=== PATIENT | male | born 1980 | race Caucasian/White ===

== ENCOUNTER 2021-11-04 16:59 | Emergency (ER) | payer OTHER ==
[~2021-11-04] VITALS: Ht 170.2 cm; Wt 80.0 kg
[2021-11-04] MEDS ORDERED: OMEP10 PO (17:15)
[2021-11-04 18:41] LABS: INR 1.1 (0.9-1.1); PROTHROMBIN TIME 12.1 SEC (9.4-11.6)
[2021-11-04 18:42] LABS: BASOPHILS % (AUTO) 0.2 % (0.0-2.0); EOSINOPHILS % (AUTO) 0.5 % (1.0-6.0); HEMATOCRIT 45.6 % (41-53); HEMOGLOBIN 15.6 g/dL (13.5-17.5); LYMPHOCYTES # (AUTO) 0.7 K/uL (1.0-4.8); LYMPHOCYTES % (AUTO) 10.2 % (22.0-44.0); MEAN CORPUSCULAR HEMOGLOBIN 29.4 pg (26.0-34.0); MEAN CORPUSCULAR HGB CONC 34.2 G/dL (31.0-37.0); MEAN CORPUSCULAR VOLUME 86 fL (80-100); MONOCYTES # (AUTO) 0.5 K/uL (0.1-1.0); MONOCYTES % (AUTO) 7.9 % (2.0-9.0); NEUTROPHILS # (AUTO) 5.3 K/uL (1.8-7.7); NEUTROPHILS % (AUTO) 81.2 % (40.0-70.0); RED BLOOD CELL COUNT(AUTO) 5.31 MIL/uL (4.50-5.90); RED CELL DISTRIBUTION WIDTH 13.5 % (11.5-14.5)
[2021-11-04 19:01] LABS: ALANINE AMINOTRANSFERASE 42 U/L (12-78); ALBUMIN 3.8 g/dL (3.4-5.0); ALKALINE PHOSPHATASE 83 U/L (46-116); ANION GAP 12 mmol/L (8-16); ASPARTATE AMINOTRANSFERASE 59 U/L (15-37); BILIRUBIN,TOTAL 1.3 mg/dL (0.1-1.0); CARBON DIOXIDE 24 mmol/L (22-29); CHLORIDE 100 mmol/L (98-107); GLOMERULAR FILTR. RATE CALC > 60 mL/min (>60); GLUCOSE,RANDOM 88 mg/dL (70-110); POTASSIUM 3.7 mmol/L (3.5-5.1); SODIUM SERUM 136 mmol/L (136-145); TOTAL PROTEIN, SERUM 8.7 g/dL (6.4-8.2); UREA NITROGEN, BLOOD 20 mg/dL (7-18)
[2021-11-04 19:13] LABS: PLATELET COUNT (AUTO) 69 K/uL (150-450)
[2021-11-04 19:53] VITALS: BP 145/84
[2021-11-07] MEDS ORDERED: SERT-439 PO (12:05)
[2021-11-07] MEDS ORDERED: QUET25TA36 PO (12:05)
== END 2021-11-04 20:36 | disposition home or self-care (01) ==
LOC: EMS 16:59
DX: F15.10 Other stimulant abuse, uncomplicated (principal); F41.9 Anxiety disorder, unspecified; F17.210 Nicotine dependence, cigarettes, uncomplicated; F14.90 Cocaine use, unspecified, uncomplicated
CPT/HCPCS: 71045; 80053; 84484; 85025; 85610; 85730; 93005; 99285; 36415-L1; 36415-TC

== ENCOUNTER 2021-11-05 00:02 | Emergency (ER) | payer OTHER ==
[~2021-11-05] VITALS: Ht 175.3 cm; Wt 85.9 kg
[~2021-11-05 00:02] MED LIST: OMEP10 PO
[2021-11-05 00:08] VITALS: BP 136/86
[2021-11-05] MEDS ORDERED: ACETAMINOPHEN 500 MG TABLET PO ONE (02:15)
[2021-11-07] MEDS ORDERED: SERT-439 PO (12:05)
[2021-11-07] MEDS ORDERED: QUET25TA36 PO (12:05)
== END 2021-11-05 02:38 | disposition home or self-care (01) ==
LOC: EMS 00:02
DX: F15.10 Other stimulant abuse, uncomplicated (principal); F17.210 Nicotine dependence, cigarettes, uncomplicated; F14.90 Cocaine use, unspecified, uncomplicated; Z59.00 Homelessness unspecified
CPT/HCPCS: 99282; Z7502; Z7610